=== PATIENT | female | born 1945 | race Two or more races ===

== ENCOUNTER 2021-12-11 15:07 | Outpatient (CLI) | payer OTHER | END 2021-12-11 15:12 | disposition home or self-care (01) | LOC: LAB 15:07 | PROVIDERS: ATTEND Internal Medicine Hematology & Oncology | DX: I10 Essential (primary) hypertension (principal); I80.221 Phlebitis and thrombophlebitis of right popliteal vein; I26.99 Other pulmonary embolism without acute cor pulmonale; E11.9 Type 2 diabetes mellitus without complications; J84.112 Idiopathic pulmonary fibrosis; G47.33 Obstructive sleep apnea (adult) (pediatric); I73.9 Peripheral vascular disease, unspecified; D50.8 Other iron deficiency anemias; R79.9 Abnormal finding of blood chemistry, unspecified; R74.02 Elevation of levels of lactic acid dehydrogenase [LDH]; K76.89 Other specified diseases of liver; D51.8 Other vitamin B12 deficiency anemias ==

== ENCOUNTER 2022-02-09 06:30 | Day surgery (SDC) | payer OTHER | END 2022-02-09 10:35 | disposition home or self-care (01) | LOC: AMB-ENDOS 06:30 | PROVIDERS: ATTEND Surgery | DX: K64.3 Fourth degree hemorrhoids (principal); Z20.822 Contact with and (suspected) exposure to COVID-19; K57.30 Diverticulosis of large intestine without perforation or abscess without bleeding; N81.6 Rectocele; I10 Essential (primary) hypertension; E11.9 Type 2 diabetes mellitus without complications; E78.5 Hyperlipidemia, unspecified ==

== ENCOUNTER 2023-05-23 11:42 | Inpatient (IN) | payer OTHER ==
[~2023-05-23] VITALS: Ht 175.3 cm; Wt 77.1 kg
[~2023-05-23 11:42] MED LIST: CHILDREN'S ASPI81 MG PO; DERMOPLAST PAIN78 GM TOP; ELIQUIS5 MG PO; INTESTINEX680 M1 PO; LANTUS SOL100 UNIT/1; NEURONTIN300 MG PO; TOPROL XL25 M1 PO; ULTRAM50 MG PO; ZESTRIL40 M1 PO; ZETIA10 MG PO
[2023-05-23] MEDS ORDERED: 0.9 % SODIUM CHLORIDE 1,000 ML IV STA (13:11)
[2023-05-23 14:30] LABS: HEMATOCRIT 37.9 % (36.0-45.00); HEMOGLOBIN 12.7 g/dL (12.0-15.00); MEAN CELL VOLUME 87.9 fL (80.00-100.00); MEAN CORPUSCULAR HEMOGLOBIN 29.5 pg (27.00-32.0); MEAN CORPUSCULAR HGB CONC 33.5 g/dl (32.0-36.0); PLATELET COUNT 527 K/uL (150-450); RED BLOOD COUNT 4.31 M/uL (4.00-6.00); RED CELL DISTRIBUTION WIDTH 15.4 % (11.5-14.5)
[2023-05-23 14:49] LABS: INR 1.02; PARTIAL THROMBOPLASTIN TIME 28.8 SECONDS (22.0-34.0); PROTHROMBIN TIME 10.7 SECONDS (9.0-11.5)
[2023-05-23 14:56] LABS: ALKALINE PHOSPHATASE 60 U/L (50-136); ALT/SGPT 15 U/L (12-78); ANION GAP 10 (10.0-20.0); AST/SGOT 15 U/L (15-37); BILIRUBIN TOTAL 0.32 mg/dL (0.3-1.2); BILIRUBIN,CONJUGATED < 0.10 mg/dL (0.0-0.2); BILIRUBIN,UNCONJUGATED 0.22 mg/dL (0.0-0.6); BLOOD UREA NITROGEN 23 mg/dL (7-18); BUN CREA RATIO 20 (7.0-25.0); CARBON DIOXIDE 26 mEq/L (21-32); CHLORIDE 105 mmol/L (98-107); CREATININE SERUM 1.16 mg/dL (0.55-1.02); GFR 45.18; GLUCOSE FASTING 156 mg/dL (65-100); OSMOLALITY SERUM 279 MOSM/KG (275-295); POTASSIUM 4.76 mEq/L (3.5-5.1); SODIUM 136 mmol/L (136-145); TOTAL PROTEIN 7.1 gm/dL (6.4-8.2)
[2023-05-23 17:09] LABS: PH,URINE 6.5 (5.0-8.0); URINE APPEARANCE Cloudy; URINE BILIRRUBIN Negative (NEGATIVE); URINE BLOOD Negative; URINE COLOR Yellow; URINE GLUCOSE Negative (NEGATIVE); URINE LEUKOCYTE Moderate; URINE NITRATE Negative; URINE PROTEIN Negative (NEGATIVE)
[2023-05-23 17:11] LABS: URINE BACTERIA 65.5 uL (0.0-1933); URINE EPITHELIAL CELLS 125.3 uL (0.0-38.8); URINE RBC 15.2 uL (0.0-20.8); URINE WBC 70.8 uL (0.0-23.2)
[2023-05-23] MEDS ORDERED: FAMOTIDINE/PF 20 MG/2 ML VIAL IV SCH (19:32)
[2023-05-23] MEDS ORDERED: 0.9 % SODIUM CHLORIDE 1,000 ML IV SCH (19:45)
[2023-05-23] MEDS ORDERED: DEXTROSE 50 % IN WATER 0.5 G/ML DISP.SYRIN IV PRN (20:00)
[2023-05-23] MEDS ORDERED: INSULIN LISPRO 1,000 UNIT/10 ML UNITS SUBCUTANEO PRN (20:00)
[2023-05-23] MEDS ORDERED: ENALAPRILAT DIHYDRATE 1.25 MG/ML VIAL IV PRN (20:00)
[2023-05-24] MEDS ORDERED: BUPIVACAINE HCL/PF 0.5% 1ML ONE (10:54)
[2023-05-24] MEDS ORDERED: POVIDONE-IODINE 118 ML BOTT TOP ONE (10:54)
[2023-05-24] MEDS ORDERED: METRONIDAZOLE/SODIUM CHLORIDE 500 MG/100 ML PIGGYBACK IV ONE (10:56)
[2023-05-24] MEDS ORDERED: DIBUCAINE 15 GM OINT..GM. TUBE ONE (10:56)
[2023-05-24] MEDS ORDERED: CEFTRIAXONE SODIUM 2,000 MG VIAL ONE (10:56)
[2023-05-24] MEDS ORDERED: LIDOCAINE HCL/EPINEPHRINE 20 ML VIAL IJ ONE (10:56)
[2023-05-24] MEDS ORDERED: HEMOSTATIC MATRIX 1 KIT KIT TOP ONE (10:56)
[2023-05-24] MEDS ORDERED: METOPROLOL SUCCINATE 25 MG TAB.SR.24H PO SCH (13:13)
[2023-05-24] MEDS ORDERED: ENALAPRILAT DIHYDRATE 1.25 MG/ML VIAL IV ONE (14:08)
[2023-05-24] MEDS ORDERED: LACTOBACILLUS ACIDOPHILUS 1 CAP CAP PO SCH (18:10)
[2023-05-24] MEDS ORDERED: POLYETHYLENE GLYCOL 3350 17 GM BLIST.PACK PO SCH (18:11)
[2023-05-25] MEDS ORDERED: ACETAMINOPHEN 500 MG GEL..CAP PO SCH
[2023-05-25] MEDS ORDERED: PIPERACILLIN/TAZOBACTAM SODIUM 3.375 GM in 0.9 % SODIUM CHLORIDE 100 ML IV SCH
[2023-05-25] MEDS ORDERED: GABAPENTIN 300 MG CAPSULE PO SCH (01:00)
[2023-05-25 07:18] LABS: ALBUMIN 2.7 gm/dL (3.4-5.0); BILIRUBIN TOTAL 0.4 mg/dL (0.3-1.2); CALCIUM 9.6 mg/dL (8.5-10.1); CREATININE SERUM 1.02 mg/dL (0.55-1.02); GFR 52.41; GLOBULINA 3.6 G/DL (2.4-3.5); POTASSIUM 4.77 mEq/L (3.5-5.1); TOTAL PROTEIN 6.3 gm/dL (6.4-8.2)
[2023-05-25 08:51] LABS: HEMATOCRIT 38.7 % (36.0-45.00); HEMOGLOBIN 12.8 g/dL (12.0-15.00); MEAN CELL VOLUME 90.2 fL (80.00-100.00); MEAN CORPUSCULAR HEMOGLOBIN 29.9 pg (27.00-32.0); MEAN CORPUSCULAR HGB CONC 33.1 g/dl (32.0-36.0); PLATELET COUNT 496 K/uL (150-450); RED BLOOD COUNT 4.29 M/uL (4.00-6.00); RED CELL DISTRIBUTION WIDTH 15.6 % (11.5-14.5)
[2023-05-25] MEDS ORDERED: ENOXAPARIN SODIUM 40 MG/0.4 ML SYRINGE SUBCUTANEO SCH (09:00)
== END 2023-05-25 11:42 | disposition home or self-care (01) | DRG 349 ==
LOC: ER 11:43 → SURH 20:14
PROVIDERS: General Practice; ADMIT Internal Medicine; ATTEND Internal Medicine
PROC: 0D9Q7ZZ Drainage of Anus, Via Natural or Artificial Opening (ICD-10-PCS; principal; 2023-05-24)
PROC: 0DBQ7ZZ Excision of Anus, Via Natural or Artificial Opening (ICD-10-PCS; 2023-05-24)
PROC: 3E0T3BZ Introduction of Anesthetic Agent into Peripheral Nerves and Plexi, Percutaneous Approach (ICD-10-PCS; 2023-05-24)
DX: K60.3 Anal fistula (principal)

== ENCOUNTER 2023-07-06 09:39 | Outpatient (CLI) | payer OTHER ==
[2023-07-06 11:33] LABS: URINE APPEARANCE Cloudy; URINE BACTERIA 307.4 uL (0.0-1933); URINE BILIRRUBIN Negative (NEGATIVE); URINE BLOOD Negative; URINE COLOR Dark Yellow; URINE EPITHELIAL CELLS 129.5 uL (0.0-38.8); URINE GLUCOSE Negative (NEGATIVE); URINE LEUKOCYTE Small; URINE NITRATE Negative; URINE PROTEIN Negative (NEGATIVE); URINE RBC 11.7 uL (0.0-20.8); URINE WBC 84.2 uL (0.0-23.2)
[2023-07-06 11:36] LABS: HEMATOCRIT 39.1 % (36.0-45.00); MEAN CELL VOLUME 89.9 fL (80.00-100.00); MEAN CORPUSCULAR HEMOGLOBIN 29.9 pg (27.00-32.0); MEAN CORPUSCULAR HGB CONC 33.2 g/dl (32.0-36.0); PLATELET COUNT 351 K/uL (150-450); RED BLOOD COUNT 4.35 M/uL (4.00-6.00); RED CELL DISTRIBUTION WIDTH 15.1 % (11.5-14.5)
[2023-07-06 12:03] LABS: INR 1.09; PARTIAL THROMBOPLASTIN TIME 33.7 SECONDS (22.0-34.0); PROTHROMBIN TIME 11.4 SECONDS (9.0-11.5)
[2023-07-06 12:22] LABS: ALBUMIN 3.2 gm/dL (3.4-5.0); BILIRUBIN TOTAL 0.52 mg/dL (0.3-1.2); CALCIUM 9.9 mg/dL (8.5-10.1); CREATININE SERUM 0.97 mg/dL (0.55-1.02); GFR 55.54; GLOBULINA 3.9 G/DL (2.4-3.5); POTASSIUM 4.77 mEq/L (3.5-5.1); TOTAL PROTEIN 7.1 gm/dL (6.4-8.2); TSH 0.848 uIU/mL (0.358-3.74)
[2023-07-06] MEDS ORDERED: ZESTRIL2.5 MG (14:36)
== END 2023-07-06 10:47 | disposition home or self-care (01) ==
LOC: LAB 09:39
PROVIDERS: ATTEND Surgery
DX: K92.2 Gastrointestinal hemorrhage, unspecified (principal); N81.6 Rectocele; K64.3 Fourth degree hemorrhoids; K59.01 Slow transit constipation; K61.0 Anal abscess

== ENCOUNTER → 2023-07-12 | Day surgery (SDC) | payer OTHER ==
[~2023-07-12] MED LIST changes: +BUPIVACAINE HCL 30 ML VIAL IJ ONE; +BUPIVACAINE HCL/PF 0.5% 30ML ML ONE; +CEFTRIAXONE SODIUM 2,000 MG VIAL IV ONE; +CEFTRIAXONE SODIUM 2,000 MG VIAL ONE; +CELECOXIB200 MG PO; +DIBUCAINE 30 GM TUBE ONE; +DIBUCAINE 30 GM TUBE RECTAL ONE; +HEMOSTATIC MATRIX 1 KIT KIT TOP ONE; +HEMOSTATIC MATRIX 1 KIT KIT TOP SCH; +LIDOCAINE HCL 1%/Epi 20ML VIAL IJ ONE; +METRONIDAZOLE/SODIUM CHLORIDE 500 MG/100 ML PIGGYBACK IV ONE; +POVIDONE-IODINE 118 ML BOTT TOP ONE; +TRAMADOL HCL50 MG PO; +ZESTRIL2.5 MG
== END | disposition home or self-care (01) ==
LOC: ADM 07-06 12:15 → CIR.AMB 06:00
PROVIDERS: ATTEND Surgery
DX: K60.3 Anal fistula (principal); K62.4 Stenosis of anus and rectum; K64.3 Fourth degree hemorrhoids; I10 Essential (primary) hypertension; E78.5 Hyperlipidemia, unspecified; I26.99 Other pulmonary embolism without acute cor pulmonale; E11.9 Type 2 diabetes mellitus without complications